=== PATIENT | female | born 1990 | race Hispanic/Latino ===

== ENCOUNTER 2022-01-24 02:55 | Emergency (ER) | payer OTHER ==
[2022-01-24] MEDS ORDERED: NA CHLORIDE 0.9% 1,000 ML ONE ×3 (03:35→05:45)
[2022-01-24 03:47] LABS: Absolute Lymphocytes (CBC) 3.1 K/uL (0.7-4.9); Hematocrit 32.1 % (36.0-45.0); Lymphocytes % 21.9 % (15.3-44.8); MCV 86.5 fL (80-100); MPV 8.5 fL (7.6-11.3); RBC Red Blood Cell Count 3.71 M/uL (3.86-4.86)
[2022-01-24] MEDS ORDERED: ONDANSETRON 4 MG/2 ML VIAL ONE (05:20)
[2022-01-24] MEDS ORDERED: OXYTOCIN 10 UNIT/ML ML ONE (05:44)
[2022-01-24] MEDS ORDERED: METHYLERGONOVINE 0.2MG/ML AMP IM ONE (05:45)
[2022-01-24] MEDS ORDERED: KCL 20 MEQ/100 mL IVPB 100 ML IV ONE (05:46)
[2022-01-24] MEDS ORDERED: NA CHLORIDE 0.9% 100 ML ONE (06:07)
[2022-01-24] MEDS ORDERED: CEFAZOLIN SODIUM 1 GM/VIAL ONE (06:07)
--- NOTE | 2022-01-24 08:58 | RAD REPORT ---
EXAM DESCRIPTION: US - Transvaginal OB - 01/24/2022 8:05 am CLINICAL HISTORY: VAGINAL BLEEDING COMPARISON: Transvaginal OB dated 01/24/2022 FINDINGS: The uterus is mildly prominent in size. Endometrium appears empty. No evidence of retained products of conception. Both ovaries were obscured by bowel gas. IMPRESSION: No evidence of retained products of conception.
[2022-01-24 08:59] LABS: Hematocrit 24.1 % (36.0-45.0)
--- NOTE | 2022-01-24 10:23 | ER ---
Nurse's Notes [facility] Name: Lorena Fragoso Age: 31 yrs Sex: Female : 1990 Arrival Date: 01/24/2022 Time: 02:56 Bed 3 Private MD: Diagnosis: Anemia, unspecified;Incomplete spontaneous with other complications Presentation: 01/24 04:08 Chief complaint: Patient states: I got a "pill" from my OBGYN to abort my twins. I kd3 started to bleed around 1:50 yesterday but when a passed the second baby, i really started to bleed a lot and it didn't stop. I am soaking my pads and II am so dizzy. Coronavirus screen: Vaccine status: Patient reports being unvaccinated. Ebola Screen: No symptoms or risks identified at this time. Initial Sepsis Screen: Does the patient meet any 2 criteria? No. Patient's initial sepsis screen is negative. Does the patient have a suspected source of infection? No. Patient's initial sepsis screen is negative. Risk Assessment: Do you want to hurt yourself or someone else? Patient reports no desire to harm self or others. Onset of symptoms was January 24, 2022. 04:08 Method Of Arrival: Wheelchair kd3 04:08 Acuity: ZAID 3 kd3 Triage Assessment: 04:08 General: Appears uncomfortable, Behavior is calm, cooperative. 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 - Social history:: Smoking status: unknown. Screenin:13 Abuse screen: Denies threats or abuse. Denies injuries from another. Nutritional kd3 screening: No deficits noted. Tuberculosis screening: No symptoms or risk factors identified. Fall Risk None identified. Assessment: 03:38 General: Appears in no apparent distress. Behavior is calm, cooperative. Pain: kd3 Complains of pain in suprapubic area. Neuro: Level of Consciousness is awake, alert, obeys commands, Oriented to person, place, time, situation. : Urine is blood tinged, Reports vaginal bleeding that is bright red. 06:55 Reassessment: Dr. España came to visit the PT at bedside. will monitor for a few hours kd3 and repeat an ultrasound. Pt bleeding decreased. General: Appears in no apparent distress. Behavior is calm, cooperative. 07:00 Reassessment: RECD REPORT FROM CAITLYN LOMBARDI. 31 YO HF P/W VAGINAL BLEEDING AFTER PASSAGE OF bp STILLBIRTH. PT SEEN BY OB DR ESPAÑA. REPEAT U/S AND PRBC TRANSFUSION PENDING. 08:00 Reassessment: REPEAT U/S COMPLETE, INITIAL RESULT UNREMARKABLE. bp 08:24 Reassessment: PER DR ESPAÑA, NO NEED FOR TRANSFUSION, CANCELLED BY . bp 09:01 Reassessment: REPEAT H/H SENT TO LAB. bp 10:47 Reassessment: PT D/C HOME AMBULATORY WITH FAMILY. bp Vital Signs: 03:25 BP 115 / 72; kd3 04:38 BP 107 / 59; Pulse 93; Resp 19; Pulse Ox 100% ; kd3 04:38 Temp 98.2(O); Weight 58.97 kg; Height 5 ft. 1 in. (154.94 cm); kd3 06:08 BP 101 / 70; Pulse 89; Resp 18; Pulse Ox 100% on R/A; kd3 07:00 BP 111 / 68; Pulse 101; Resp 15; Pulse Ox 100% ; bp 09:00 BP 109 / 66; Pulse 90; Resp 16; Pulse Ox 100% ; bp 10:47 BP 109 / 65; Pulse 95; Resp 16; Pulse Ox 100% ; bp 04:38 Body Mass Index 24.56 (58.97 kg, 154.94 cm) kd3 ED Course: 02:56 Patient arrived in ED. ja2 03:18 Sohail Parada MD is Attending Physician. 7 03:24 Caitlyn Armstrong, RN is Primary Nurse. kd3 03:38 Inserted saline lock: 18 gauge in right antecubital area, using aseptic technique. kd3 Blood collected. 04:08 Arm band placed on right wrist. kd3 04:13 Triage completed. kd3 04:13 No provider procedures requiring assistance completed. kd3 04:13 Patient has correct armband on for positive identification. kd3 04:18 US Transvaginal Ob In Process Unspecified. EDMS 07:03 Primary Nurse role handed off by Caitlyn Armstrong, RN bp 07:03 Nahid Goldstein, HARJIT is Primary Nurse. bp 07:12 Attending Physician role handed off by Sohail Parada MD ms3 07:12 Saji Montesinos DO is Attending Physician. ms3 08:07 US Transvaginal Ob: REPEAT In Process Unspecified. EDMS 10:22 Amilcar Epsaña MD is Referral Physician. ms3 10:30 IV discontinued, intact, bleeding controlled, No redness/swelling at site. Pressure bp dressing applied. Administered Medications: 03:28 Drug: NS 0.9% 1000 ml Route: IV; Rate: 1000 ml; Site: right antecubital; kd3 05:46 Drug: Pitocin (oxytocin) 20 units Route: IV; Rate: calculated rate; Site: left kd3 antecubital; 05:47 Drug: METHERgine 0.2 mg Route: IM; Site: right deltoid; kd3 08:44 Follow up: Response: No adverse reaction bp 05:59 Drug: Potassium Chloride 20 mEq Route: IV; Rate: per protocol; Site: right antecubital; kd3 06:08 Drug: Ancef (cefazolin) 1 grams Route: IVPB; Site: left antecubital; kd3 Medication: 04:13 VIS not applicable for this client. kd3 Outcome: 10:22 Discharge ordered by . ms3 10:48 Discharged to home ambulatory. bp 10:48 Condition: stable 10:48 Discharge instructions given to patient, Instructed on discharge instructions, follow up and referral plans. medication usage, Demonstrated understanding of instructions, follow-up care, medications, Prescriptions given X 2. 10:48 Patient left the ED. bp Signatures: Dispatcher [employer] EDWA Nahid Goldstein, RN RN bp Saji Montesinos DO DO ms3 Sohail Parada MD MD 7 Yanet Barton Kyli, RN RN kd3
--- NOTE | 2022-01-24 10:23 | EDPHYS ---
Physician Documentation [facility] Name: Lorena Fragoso Age: 31 yrs Sex: Female : 1990 Arrival Date: 01/24/2022 Time: 02:56 Bed 3 Private MD: ED Physician Saji Montesinos HPI: 01/24 03:40 This 31 yrs old Female presents to ER via Unassigned with complaints of mh7 Vaginal Bleeding. 03:40 The patient presents with vaginal bleeding that is heavy. Onset: The symptoms/episode mh7 began/occurred today. Modifying factors: The symptoms are alleviated by nothing, the symptoms are aggravated by nothing. Associated signs and symptoms: Pertinent negatives: constipation, cramping, diarrhea, dyspareunia, dysuria, fever, hematuria, nausea, urinary frequency, vaginal discharge, vomiting. Severity of symptoms: At their worst the symptoms were moderate, earlier today, in the emergency department the symptoms have improved, moderately. 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 She states that she passed two fetuses this morning and has had continued vaginal bleeding.. 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 - Social history:: Smoking status: unknown. ROS: 03:40 Constitutional: Negative for fever, chills, and weight loss, Eyes: Negative for injury, mh7 pain, redness, and discharge, ENT: Negative for injury, pain, and discharge, Neck: Negative for injury, pain, and swelling, Cardiovascular: Negative for chest pain, palpitations, and edema, Respiratory: Negative for shortness of breath, cough, wheezing, and pleuritic chest pain, Abdomen/GI: Negative for abdominal pain, nausea, vomiting, diarrhea, and constipation, Back: Negative for injury and pain, MS/Extremity: Negative for injury and deformity, Skin: Negative for injury, rash, and discoloration, Neuro: Negative for headache, weakness, numbness, tingling, and seizure, Psych: Negative for depression, anxiety, suicide ideation, homicidal ideation, and hallucinations, Allergy/Immunology: Negative for hives, rash, and allergies, Endocrine: Negative for neck swelling, polydipsia, polyuria, polyphagia, and marked weight changes, Hematologic/Lymphatic: Negative for swollen nodes, abnormal bleeding, and unusual bruising. Exam: 03:40 Constitutional: This is a well developed, well nourished patient who is awake, alert, mh7 and in no acute distress. Head/Face: Normocephalic, atraumatic. Eyes: Pupils equal round and reactive to light, extra-ocular motions intact. Lids and lashes normal. Conjunctiva and sclera are non-icteric and not injected. Cornea within normal limits. Periorbital areas with no swelling, redness, or edema. Neck: Trachea midline, no thyromegaly or masses palpated, and no cervical lymphadenopathy. Supple, full range of motion without nuchal rigidity, or vertebral point tenderness. No Meningismus. Chest/axilla: Normal chest wall appearance and motion. Nontender with no deformity. No lesions are appreciated. Cardiovascular: Regular rate and rhythm with a normal S1 and S2. No gallops, murmurs, or rubs. Normal PMI, no JVD. No pulse deficits. Respiratory: Lungs have equal breath sounds bilaterally, clear to auscultation and percussion. No rales, rhonchi or wheezes noted. No increased work of breathing, no retractions or nasal flaring. Abdomen/GI: Soft, non-tender, with normal bowel sounds. No distension or tympany. No guarding or rebound. No evidence of tenderness throughout. Back: No spinal tenderness. No costovertebral tenderness. Full range of motion. Skin: Warm, dry with normal turgor. Normal color with no rashes, no lesions, and no evidence of cellulitis. MS/ Extremity: Pulses equal, no cyanosis. Neurovascular intact. Full, normal range of motion. Neuro: Awake and alert, GCS 15, oriented to person, place, time, and situation. Cranial nerves II-XII grossly intact. Motor strength 5/5 in all extremities. Sensory grossly intact. Cerebellar exam normal. Normal gait. Psych: Awake, alert, with orientation to person, place and time. Behavior, mood, and affect are within normal limits. 04:25 : CVA tenderness, is absent, Pelvic Exam: External exam: is normal, Speculum exam: mh7 moderate bleeding, blood clots in vaginal vault, os that is open, tissue in cervix is seen, tissue in vagina is seen, the nurse was present for the exam, Bladder: is normal. Vital Signs: 03:25 BP 115 / 72; kd3 04:38 BP 107 / 59; Pulse 93; Resp 19; Pulse Ox 100% ; kd3 04:38 Temp 98.2(O); Weight 58.97 kg; Height 5 ft. 1 in. (154.94 cm); kd3 06:08 BP 101 / 70; Pulse 89; Resp 18; Pulse Ox 100% on R/A; kd3 07:00 BP 111 / 68; Pulse 101; Resp 15; Pulse Ox 100% ; bp 09:00 BP 109 / 66; Pulse 90; Resp 16; Pulse Ox 100% ; bp 10:47 BP 109 / 65; Pulse 95; Resp 16; Pulse Ox 100% ; bp 04:38 Body Mass Index 24.56 (58.97 kg, 154.94 cm) kd3 MDM: 06:29 Differential diagnosis: ectopic , menometrorrhagia, menorrhea, threatened Ab, mh7 inevitable Ab, complete Ab, retained Ab, missed Ab, hemorrhage. Data reviewed: vital signs, nurses notes, lab test result(s), Beta HCG: CBC, electrolytes, radiologic studies, ultrasound. Data interpreted: Pulse oximetry: on room air is 100 %. Interpretation: normal. Physician consultation: Amilcar España MD was contacted at 05:10, and will see patient in ED, in the emergency department to see patient at 05:30. 07:04 Transition of care: After a detail discussion of the patient's case, care is [facility] transferred to [facility]. 07:12 Patient medically screened. ms3 08:25 Physician consultation: Amilcar España MD was called at 08:25, Patient will not need ms3 the 2 units PRBCs ordered. Patient to be walked around and if not syncopal and repeat H/H not less than 7 patient can be discharged. Patient to get Cytotec 100 mcg, 1 po q 4 hours for total of 6 doses. Doxycycline 100 mg BID for 3 days.. 01/24 03:22 Order name: Abo/rh Typing; Complete Time: 06:27 [facility] 01/24 03:22 Order name: Basic Metabolic Panel; Complete Time: 04:59 [facility] 01/24 03:22 Order name: CBC with Diff; Complete Time: 04:59 7 01/24 03:22 Order name: Quantitative Hcg; Complete Time: 04:59 7 01/24 06:16 Order name: Antibody Screen; Complete Time: 06:27 [facility] 01/24 03:22 Order name: US Transvaginal Ob 7 01/24 06:16 Order name: Packed RBC Leukored MS 01/24 07:06 Order name: US Transvaginal Ob: REPEAT; Complete Time: 09:35 bp 01/24 08:24 Order name: Hemoglobin; Complete Time: 09:35 ms3 01/24 08:24 Order name: Hematocrit; Complete Time: 09:35 id3 01/24 03:22 Order name: IV Saline Lock; Complete Time: 03:28 7 01/24 03:22 Order name: Labs collected and sent; Complete Time: 03:28 [facility] 01/24 03:22 Order name: NPO; Complete Time: 03:28 mh7 Administered Medications: 03:28 Drug: NS 0.9% 1000 ml Route: IV; Rate: 1000 ml; Site: right antecubital; kd3 05:46 Drug: Pitocin (oxytocin) 20 units Route: IV; Rate: calculated rate; Site: left kd3 antecubital; 05:47 Drug: METHERgine 0.2 mg Route: IM; Site: right deltoid; kd3 08:44 Follow up: Response: No adverse reaction bp 05:59 Drug: Potassium Chloride 20 mEq Route: IV; Rate: per protocol; Site: right antecubital; kd3 06:08 Drug: Ancef (cefazolin) 1 grams Route: IVPB; Site: left antecubital; kd3 Disposition Summary: 01/24/22 10:22 Discharge Ordered Location: Home ms3 Condition: Stable ms3 Diagnosis - Anemia, unspecified ms3 - Incomplete spontaneous with other complications ms3 Followup: ms3 - With: Amilcar España MD - When: 2 - 3 days - Reason: Recheck today's complaints Discharge Instructions: - Discharge Summary Sheet ms3 - Anemia ms3 - Miscarriage, [id number] ms3 Forms: - Work release form bp - Medication Reconciliation Form ms3 - Thank You Letter ms3 - Antibiotic Education ms3 - Prescription Opioid Use ms3 - Family Work Release bp Prescriptions: - Doxycycline Hyclate 100 mg Oral Tablet - take 1 tablet by ORAL route every 12 hours; 20 tablet; Refills: 0, Product ms3 Selection Permitted - Cytotec 100 mcg Oral tablet - take 1 tablet by ORAL route every 4 hours; 6 tablet; Refills: 0, Product ms3 Selection Permitted Signatures: Dispatcher [employer] Saji Rg DO DO ms3 Sohail Parada MD MD mh7 Caitlyn Armstrong RN RN kd3 Nahid Goldstein RN bp
--- NOTE | 2022-01-24 10:59 | PREOPHP ---
Date of Admission: 01/24/2022 History Of Present Illness: This is a 31-year-old, 4, para 3, with known intrauterine twin gestation, seen by Dr. Gamboa after referral from my office, noted to have an intrauterine demise of both twins, yesterday was given Cytotec intravaginally in Dr. Gamboa's office and told to report back to Dr. Gamboa should any heavy bleeding occur. This morning at approximately 3 a.m., she began bleeding heavily. Because she lives in [place], came to this hospital instead of [facility] in [place]. At time of being seen in the emergency room, was bleeding profusely. Ultrasound demonstrated retained products. Inspection exam done by ER physician at that time showed lots of clots and tissue that could be removed. She has 2 IVs. She has been started on IV Pitocin at 200 cc an hour 20 units and 1000 cc. Had been given Methergine 0.2 mg IM. Speculum exam was done and showed products of conception in the office. These were teased out with ring clamps. The final specimen that was removed looked like basically an embryonic sac, but the patient showed me pictures that showed both twins had been aborted at home. This could be the last part of an abnormal placenta. Everything of course will be sent to pathology. After removal of the products, bleeding has subsided substantially. The patient is Rh positive, therefore will not need RhoGAM. She will be observed here in the emergency room for several more hours until she is stable. We will repeat another ultrasound to make sure the uterus is empty. Once she is dismissed, we will send her home with Cytotec 100 mcg every 4 hours for 6 doses, doxycycline 100 mg twice a day for 3 days for prophylaxis. She has been given 1 g of Ancef here in the emergency room. At this time, her bleeding is minimal. Her vital signs are all better. She says she feels better at this point, but we will get another ultrasound to make sure that there are not some retained products. Family History: Noncontributory. Past Medical History: Three uneventful deliveries. Allergies: NO KNOWN ALLERGIES. Past Surgical History: No previous surgeries. Physical Examination: HEENT: Clear. Pupils equal, round, reactive to light and accommodation. Conjunctivae well perfused. Chest and Lungs: Normal. Heart: Normal. Breasts: Not examined. Abdomen: Without problems. Extremities: Clear. Pelvic: Shows the cervical os widely dilated with lots of clots in the vagina, but once these were cleared, we could see membranes and these were teased out and we will send all tissue to pathology. If they are still products remaining too high for the ring clamp to reach, we will probably have to do a vacuum extraction, but at this point, everything looks completed . Followup according to the patient's response. Doing well at this point. Diagnoses: Intrauterine demise less than 20 weeks, incomplete , medically induced and basically removal of products of conception in the emergency room. No curettage was done, but extraction with ring clamp. JAYDEN/SMILEY Voice ID: [id number] MTDD
[2022-01-24 11:22] VITALS: TEMP 98.2; O2SAT 100
[2022-01-24 11:39] VITALS: BP 109/65
--- NOTE | 2022-01-24 13:27 | RAD REPORT ---
EXAM DESCRIPTION: Ultrasound Pelvis COMPARISON: None. CLINICAL HISTORY: [facility] MAIN VAGINAL BLEEDING TECHNIQUE: Transabdominal and transvaginal sonographic images of the pelvis were obtained. Color Doppler was also utilized. FINDINGS: Uterus: The uterus measures 12.6 x 9.3 x 7.5 cm and is in a normal position. The endometri um is thickened demonstrating echogenic products with cystic areas measuring up to 5.2 cm. There are areas of vascularity within. Right Adnexa: The right ovary measures 3.2 x 1.3 x 2.6 cm and is normal. Normal vascularity. Left Adnexa: The left ovary measures 3.0 x 1.6 x 2.2 cm and is normal. Normal vascularity. Peritoneal cavity: No free fluid is seen in the cul-de-sac. IMPRESSION: Complex endometrial products which are entering the lower uterine segment and cervix, co mpatible with miscarriage in progress/retained products of conception. Electronically signed by: Ata Stevens MD 01/24/2022 6:02 AM CDT Due to temporary technical issues with the PACS/Fluency reporting system, reports are being signed by the in house radiologists without review as a courtesy to insure prompt reporting. The interpreting radiologist is fully responsible for the content of the report.
== END 2022-01-24 10:48 | disposition home or self-care (01) ==
LOC: ER 02:55
PROC: 30233N1 Transfusion of Nonautologous Red Blood Cells into Peripheral Vein, Percutaneous Approach (ICD-10-PCS; principal; 2022-01-24)
DX: O03.39 Incomplete spontaneous abortion with other complications (principal); D64.9 Anemia, unspecified
CPT/HCPCS: 85025; 80048; 36415; 86900; 86850; 86901; 84702; 85018; 85014; 76817 ×2; 36430; J2210; J3480; J7030 ×3; J2405; J0690

== ENCOUNTER 2022-03-07 21:22 | Emergency (ER) | payer OTHER ==
--- OUTSIDE RECORDS SUMMARY | 2022-03-07 21:26 | XMS REPORT | Continuity of Care Document ---
:1990 Author Organization [facility] t Address [address] [place] [address] Care Team Providers Name Role Phone Pcp, Patient Does Not Have A Primary Care Physician [id number] CAITLIN MURPHY Attending Clinician Unavailable Jeffrey GOLDSTEIN, Caitlin Arciniega Attending Clinician Angeles Mejia Attending Clinician ANGELES WELSH Attending Clinician Unavailable 2, [facility] Attending Clinician Unavailable Brianda Bentley MD Attending Clinician [phone] Doctor Unassigned, [place] Attending Clinician Unavailable Payers Payer Name Policy Type Policy Number Effective Date Expiration Date Becky MADRIGALS [id number] 2021 HEALTH 00:00:00 Problems Condition Condition Condition Status Onset Resolution Last Treating Co mments Source Name Details Category Date Date Treatment Clinician Date Nausea and Nausea and Disease Active U nivers vomiting vomiting 7-18 ity of during during 00:00: [place] 00 Medi richard prior to prior to Branch 22 weeks 22 weeks gestation gestation Dizziness Dizziness Disease Active Uni vers and and 7-18 [place] [facility] High risk High risk Disease Active Uni vers , , 7-18 [place] ante[place] [facility] 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, c twins, 7-18 [place] of [place] [facility] Allergies, Adverse Reactions, Alerts Allergy Allergy Status Severity Reaction(s) Onset Inactive Treating Comm ents Source Name Type Date Date Clinician NO KNOWN Drug Active Univers ALLERGIE Class ity of S [facility] Social History Social Habit Start Date Stop Date Quantity Comments Source ASSERTION 2021-11-05 University 00:00:00 [facility] History of Passive smoker University of tobacco use [facility] Exposure to 2022-01-13 2022-01-23 Not sure [facility] SARS-CoV-2 00:00:00 12:29:00 [facility] (event) [place] Tobacco use and 2021-12-25 2021-12-25 Smokeless tobacco Un iversity of exposure 00:00:00 00:00:00 non-user [facility] Alcohol intake 2021-12-25 2021-12-25 Lifetime University of 00:00:00 00:00:00 non-drinker [facility] (finding) [place] Sex Assigned At [birth year] Universit y of 00:00:00 00:00:00 [facility] Smoking Status Start Date Stop Date Source Never smoked tobacco [facility] Medications Ordered Filled Start Stop Current Ordering Indication Dosage Frequency Signature Comments Components Source Medication Medication Date Date Medication? Clinician (SIG) Name Name ibuprofen Yes [id number] 600mg Take 1 U nivers 600 mg 8-16 tablet by ity of tablet 00:00: mouth [place] 00 every 6 Medical (six) Branch hours as needed for Pain (scale 1-3) or Pain (scale 4-6). ibuprofen Yes [id number] 600mg Take 1 U nivers 600 mg 8-16 tablet by ity of tablet 00:00: mouth [place] 00 every 6 Medical (six) Branch hours as needed for Pain (scale 1-3) or Pain (scale 4-6). HYDROcodone 2021- Yes [id number] 1{tbl} Take 1 U nivers -acetaminop 8-16 08-24 tablet by it y of hen 5-325 00:00: 04:59 mouth [place] mg tablet 00 :00 every 6 Medical (six) Branch hours as needed for Pain (scale 7-10) for up to 7 days. Indication s: acute pain HYDROcodone 2021- Yes [id number] 1{tbl} Take 1 U nivers -acetaminop 8-16 08-24 tablet by it y of hen 5-325 00:00: 04:59 mouth [place] mg tablet 00 :00 every 6 Medical (six) Branch hours as needed for Pain (scale 7-10) for up to 7 days. Indication s: acute pain PNV 2021-0 Yes Take by Univers no.95/rubia 7-18 mouth. ity of 08:17: [place] fum/folic 34 Medical ac Branch ( ORAL) PNV 0 Yes Take by Univers no.95/rubia 7-18 mouth. ity of 08:17: [place] fum/folic 34 Medical ac Branch ( ORAL) PNV 0 Yes Take by Univers no.95/rubia 7-18 mouth. ity of 08:17: [place] fum/folic 34 Medical ac Branch ( ORAL) PNV 0 Yes Take by Univers no.95/rubia 7-18 mouth. ity of 08:17: [place] fum/folic 34 Medical ac Branch ( ORAL) PNV 0 Yes Take by Univers no.95/rubia 7-18 mouth. ity of 08:17: [place] fum/folic 34 Medical ac Branch ( ORAL) pyridoxine, 0 Yes [id number] 25mg Take 1 Univers VITAMIN 7-18 tablet by ity of B-6, 00:00: mouth [place] (VITAMIN 00 every 6 Medical B-6) 25 mg (six) Branch tablet hours as needed for Nausea and Vomiting (N/V). doxylamine 0 Yes [id number] 25mg Take 1 U nivers (UNISOM, 7-18 tablet by ity of DOXYLAMINE, [place] 25 mg 00 bedtime as Medica l tablet needed for Branch Nausea and Vomiting (N/V). metoclopram 0 Yes [id number] 10mg Take 1 Univers crissy HCl 10 7-18 tablet by ity of mg tablet 00:00: mouth [place] 00 every 6 Medical (six) Branch hours as needed for Nausea and Vomiting (N/V). pyridoxine, 2022-0 Yes [id number] 25mg Take 1 Univers VITAMIN 7-18 tablet by ity of B-6, 00:00: mouth [place] (VITAMIN 00 every 6 Medical B-6) 25 mg (six) Branch tablet hours as needed for Nausea and Vomiting (N/V). doxylamine 2021-0 Yes [id number] 25mg Take 1 U nivers (UNISOM, 7-18 tablet by ity of DOXYLAMINE, [place]: [place] 25 mg 00 bedtime as Medica l tablet needed for Branch Nausea and Vomiting (N/V). metoclopram 2021-0 Yes [id number] 10mg Take 1 Univers crissy HCl 10 7-18 tablet by ity of mg tablet 00:00: mouth [place] 00 every 6 Medical (six) Branch hours as needed for Nausea and Vomiting (N/V). pyridoxine, 2021-0 Yes [id number] 25mg Take 1 Univers VITAMIN 7-18 tablet by ity of B-6, 00:00: mouth [place] (VITAMIN 00 every 6 Medical B-6) 25 mg (six) Branch tablet hours as needed for Nausea and Vomiting (N/V). doxylamine 2021-0 Yes [id number] 25mg Take 1 U nivers (UNISOM, 7-18 tablet by ity of DOXYLAMINE, [place]: [place] 25 mg 00 bedtime as Medica l tablet needed for Branch Nausea and Vomiting (N/V). metoclopram 2021-0 Yes [id number] 10mg Take 1 Univers crissy HCl 10 7-18 tablet by ity of mg tablet 00:00: mouth [place] 00 every 6 Medical (six) Branch hours as needed for Nausea and Vomiting (N/V). pyridoxine, 2021-0 Yes [id number] 25mg Take 1 Univers VITAMIN 7-18 tablet by ity of B-6, 00:00: mouth [place] (VITAMIN 00 every 6 Medical B-6) 25 mg (six) Branch tablet hours as needed for Nausea and Vomiting (N/V). doxylamine 2021-0 Yes [id number] 25mg Take 1 U nivers (UNISOM, 7-18 tablet by ity of DOXYLAMINE, [place]: [place] 25 mg 00 bedtime as Medica l tablet needed for Branch Nausea and Vomiting (N/V). metoclopram 2022-0 Yes [id number] 10mg Take 1 Univers crissy HCl 10 7-18 tablet by ity of mg tablet 00:00: mouth [place] 00 every 6 Medical (six) Branch hours as needed for Nausea and Vomiting (N/V). pyridoxine, 2-0 Yes [id number] 25mg Take 1 Univers VITAMIN 7-18 tablet by ity of B-6, 00:00: mouth [place] (VITAMIN 00 every 6 Medical B-6) 25 mg (six) Branch tablet hours as needed for Nausea and Vomiting (N/V). doxylamine 2-0 Yes [id number] 25mg Take 1 U nivers (UNISOM, 7-18 tablet by ity of DOXYLAMINE, [place]: [place] 25 mg 00 bedtime as Medica l tablet needed for Branch Nausea and Vomiting (N/V). metoclopram 2-0 Yes [id number] 10mg Take 1 Univers crissy HCl 10 7-18 tablet by ity of mg tablet 00:00: mouth [place] 00 every 6 Medical (six) Branch hours as needed for Nausea and Vomiting (N/V). metoclopram 2-0 Yes [id number] 10mg Take 1 Univers crissy HCl 10 7-07 tablet by ity of mg tablet 00:00: mouth [place] 00 every 6 Medical (six) Branch hours. metoclopram 2022-0 Yes [id number] 10mg Take 1 Univers crissy HCl 10 7-07 tablet by ity of mg tablet 00:00: mouth [place] 00 every 6 Medical (six) Branch hours. metoclopram 2022-0 Yes [id number] 10mg Take 1 Univers crissy HCl 10 7-07 tablet by ity of mg tablet 00:00: mouth [place] 00 every 6 Medical (six) Branch hours. metoclopram 2022-0 Yes [id number] 10mg Take 1 Univers crissy HCl 10 7-07 tablet by ity of mg tablet 00:00: mouth [place] 00 every 6 Medical (six) Branch hours. metoclopram 2022-0 Yes [id number] 10mg Take 1 Univers crissy HCl 10 7-07 tablet by ity of mg tablet 00:00: mouth [place] 00 every 6 Medical (six) Branch hours. loratadine 2019-1 Yes [id number] 10mg Take 1 Un nick 10 mg 1-12 tablet by ity of tablet 00:00: mouth [place] 00 daily. Medical Branch loratadine 2018-06 Yes [id number] 10mg Take 1 Un nick 10 mg 1-12 tablet by ity of tablet 00:00: mouth [place] 00 daily. Medical Branch loratadine 2018-06 Yes [id number] 10mg Take 1 Un nick 10 mg 1-12 tablet by ity of tablet 00:00: mouth [place] 00 daily. Medical Branch loratadine 2018-06 Yes [id number] 10mg Take 1 Un nick 10 mg 1-12 tablet by ity of tablet 00:00: mouth [place] 00 daily. Medical Branch loratadine 2018-06 Yes [id number] 10mg Take 1 Un nick 10 mg 1-12 tablet by ity of tablet 00:00: mouth [place] 00 daily. [facility] Branch Vital Signs Vital Name Observation Time Observation Value Comments Source Systolic blood 2022-01-23 18:12:00 107 mm[Hg] Univer sity of [facility] Diastolic blood 2022-01-23 18:12:00 70 mm[Hg] [facility] Heart rate 2022-01-23 18:12:00 80 /min [facility] Body temperature 2022-01-23 18:12:00 37.06 Ora [facility] Body height 2022-01-23 18:12:00 154.9 cm [facility] Body weight 2022-01-23 18:12:00 59.149 kg [facility] BMI 2022-01-23 18:12:00 24.64 kg/m2 [facility] Systolic blood 2022-01-19 14:47:00 120 mm[Hg] Univer sity of [facility] Diastolic blood 2022-01-19 14:47:00 67 mm[Hg] Unive rsity [facility] [place] [facility] Heart rate 2022-01-19 14:47:00 96 /min [facility] Body temperature 2022-01-19 14:47:00 37.11 Ora [facility] Respiratory rate 2022-01-19 14:47:00 16 /min [facility] Body height 2022-01-19 14:47:00 154.9 cm Universi ty of [facility] Body weight 2022-01-19 14:47:00 58.968 kg [facility] BMI 2022-01-19 14:47:00 24.56 kg/m2 [facility] Oxygen saturation in 2022-01-19 14:47:00 98 /min University of Arterial blood by [facility] Pulse oximetry Branch Procedures Procedure Date / Time Performed Performing Clinician [facility] CONSENT/REFUSAL FOR 2022-01-19 14:42:35 Doctor Unassigned, No Un iversity of [place] DIAGNOSIS AND Name Medical Branch TREATMENT SCANNED LAB RESULTS 2022-01-01 05:01:00 Doctor Unassigned, No [facility] [place] Name Medical Branch Encounters Start End Encounter Admission Attending Care Care Encounter Source Date/Time Date/Time Type Type Clinicians Facility Department ID 2022-01-29 2022-01-29 Outpatient R CAITLIN MURPHY [facility] [id number] Univers 10:45:00 10:45:00 [id number] ity of [facility] 2022-01-29 2022-01-29 Outpatient R CAITLIN MURPHY [facility] [id number] Univers 10:45:00 10:45:00 ity of [facility] 2022-01-24 2022-01-24 Outpatient R CAITLIN MURPHY [facility] [id number] Univers 10:30:00 10:30:00 ity of [facility] 2022-01-24 2022-01-24 Telephone Caitlin Murphy GAALESSANDRO [id number] Univers 00:00:00 00:00:00 [place] [id number] i ty of [place] [id number] [id number] Me dical NAL [address] [place] [address] 2022-01-23 2022-01-23 Routine Caitlin Murphy GAALESSANDRO [id number] Univers 13:00:00 13:15:00 Cam [place] [id number] ity of Visit [place] [id number] [place] [id number] Nv dical NAL [address] [place] [address] 2022-01-23 2022-01-23 Outpatient R JEFFREY CAITLIN [facility] [id number] Univers 13:00:00 13:00:00 [id number] [facility] 2022-01-23 2022-01-23 Outpatient Paulino MURPHY CAITLIN [facility] [id number] Univers 13:00:00 13:00:00 [facility] 2022-01-19 2022-01-19 Emergency [facility] [id number] Univers 09:51:00 10:53:00 Angeles REMY [id number] i ty [facility] [id number] [place] [id number] [facility] 084 [place] 2022-01-19 2022-01-19 [facility] [id number] Univers 09:51:00 10:53:00 [facility] [place] [facility] 2022-01-18 2022-01-18 Environmental Professional 2[facility] [id number] Univers 13:45:00 14:50:57 Visit Brianda Bentley V/[employer] 350.1. 13.[address] [facility] [id number] Ahsan as MATERNAL [phone] Med ical & CHILD [address] [place] [address] 2022-01-01 2022-01-01 Orders Doctor LESLEE [id number] Univers 00:00:00 00:00:00 Only Unassigned, PRITESH [id number] ity of [place] [facility] [phone] [facility] 009 [place] Results This patient has no known results.
[2022-03-07 22:11] LABS: Urine Blood 3+ (Negative); Urine Glucose Negative (Negative); Urine Protein 2+ (Negative); Urine Specific Gravity >=1.030 (1.005-1.030)
[2022-03-07 22:29] LABS: Absolute Lymphocytes (CBC) 2.2 K/uL (0.7-4.9); Hematocrit 30.5 % (36.0-45.0); Lymphocytes % 25.5 % (15.3-44.8); MPV 8.3 fL (7.6-11.3); RBC Red Blood Cell Count 3.68 M/uL (3.86-4.86)
[2022-03-07 22:44] LABS: Albumin 3.6 g/dL (3.4-5.0); Bilirubin Total 0.2 mg/dL (0.2-1.0); Potassium 3.6 mmol/L (3.5-5.1); Protein, Total 7.4 g/dL (6.4-8.2)
--- NOTE | 2022-03-07 22:53 | RAD REPORT ---
EXAM DESCRIPTION: US - Pelvis Complete - 03/07/2022 10:31 pm CLINICAL HISTORY: Vaginal bleeding COMPARISON: January 24, 2022 FINDINGS: The uterus measures 9 x 5 x 6 centimeters. Endometrial stripe measures 2.3 centimeters. It is somewhat heterogeneous. 5.3 centimeter left ovarian cyst. Blood flow is present the left ovary. Right ovary normal size and echotexture. No significant free fluid IMPRESSION: Endometrial stripe is thickened and heterogeneous. As the patient was in January 2022 this co uld indicate retained products of conception and should correlated clinically. Another consideration is that this is related to the patient's menses 5.3 centimeter left ovarian cyst
--- NOTE | 2022-03-07 23:23 | EDPHYS ---
Physician Documentation [facility] Name: Lorena Fragoso Age: 31 yrs Sex: Female : 1990 Arrival Date: 03/07/2022 Time: 21:27 Bed 5 Private MD: ED Physician Phong Scott HPI: 03/07 21:45 This 31 yrs old Female presents to ER via Wheelchair with complaints of jmm Vaginal Bleeding. 21:45 The patient presents with vaginal bleeding that is. Onset: The symptoms/episode jmm began/occurred gradually, 1 month(s) ago. Modifying factors: The symptoms are alleviated by nothing, the symptoms are aggravated by nothing. This is a 31 year old female with no chronic medical conditions. 1 month s/p dnc due to spontaneous with complaints of ongoing bleeding since the procedure. Patient states feeling weak today and passing clots. Patient states being prescribed lo ovral but will occasionally miss doses. DNC performed by Dr. Schumacher. . Historical: - Allergies: 21:38 No Known Allergies; hb - Home Meds: 21:38 None [Active]; hb - PMHx: 21:38 None; hb - PSHx: 21:38 None; hb - Immunization history:: Adult Immunizations up to date. - Social history:: Smoking status: Patient denies any tobacco usage or history of. ROS: 21:45 Constitutional: Negative for fever, chills, and weight loss, Cardiovascular: Negative jmm for chest pain, palpitations, and edema, Respiratory: Negative for shortness of breath, cough, wheezing, and pleuritic chest pain. 21:45 Neuro: Positive for weakness. 21:45 All other systems are negative. Exam: 21:45 Constitutional: This is a well developed, well nourished patient who is awake, alert, jmm and in no acute distress. Head/Face: atraumatic. Eyes: EOMI, no conjunctival erythema appreciated ENT: Moist Mucus Membranes Neck: Trachea midline, Supple Chest/axilla: Normal chest wall appearance and motion. Cardiovascular: Regular rate and rhythm. No edema appreciated Respiratory: Normal respirations, no respiratory distress appreciated Abdomen/GI: Non distended Back: Normal ROM Skin: General appearance color normal MS/ Extremity: Moves all extremities, no obvious deformities appreciated, no edema noted to the lower extremities Neuro: Awake and alert Psych: Behavior is normal, Mood is normal, Patient is cooperative and pleasant Vital Signs: 21:36 BP 132 / 82; Pulse 105; Resp 16; Temp 98.4; Pulse Ox 100% on R/A; Weight 58.97 kg; hb Height 5 ft. 1 in. (154.94 cm); Pain 3/10; 22:15 BP 121 / 76; Pulse 98; Resp 16; Pulse Ox 100% on R/A; jb4 22:45 BP 113 / 74; Pulse 96; Resp 16; Pulse Ox 100% on R/A; jb4 23:15 BP 100 / 68; Pulse 93; Resp 18; Pulse Ox 100% on R/A; jb4 21:36 Body Mass Index 24.56 (58.97 kg, 154.94 cm) hb MDM: 21:45 Patient medically screened. [facility] 23:18 Data reviewed: vital signs, nurses notes. Counseling: I had a detailed discussion with pooja the patient and/or guardian regarding: the historical points, exam findings, and any diagnostic results supporting the discharge/admit diagnosis, lab results, radiology results, the need for outpatient follow up. Refusal of service: The patient/guardian displays adequate decision making capability and despite a detailed discussion of alternatives, benefits, risks, and consequences refuses: transfer. ED course: I discussed with the patient the need for further evaluation by OBGYN. DNC was performed after . Most likely abnormal uterine bleeding vs poc. I left voicemail with dr. schumacher. At this time no response. I did offer to transfer for obgyn evaluation. Patient declined. Will follow up with obgyn tomrrow morning. Otherwise given strict return precautions. Patient/ understood and agrees with the plan of care. . 03/07 21:46 Order name: CBC with Diff; Complete Time: 22:40 [facility] 03/07 21:46 Order name: CMP; Complete Time: 22:48 [facility] 03/07 21:46 Order name: Type And Screen [facility] 03/07 21:46 Order name: US Pelvis Complete; Complete Time: 22:56 [facility] 03/07 22:12 Order name: Urine Dipstick-Ancillary; Complete Time: 22:24 [facility] 03/07 21:46 Order name: Saline Lock; Complete Time: 22:14 [facility] 03/07 21:46 Order name: Urine Dipstick-Ancillary (obtain specimen); Complete Time: 22:12 [facility] 03/07 21:46 Order name: Urine Test (obtain specimen); Complete Time: 22:12 [facility] Administered Medications: No medications were administered Disposition Summary: 03/07/22 23:22 Discharge Ordered Location: Home [facility] Condition: Stable [facility] Diagnosis - Other specified abnormal uterine and vaginal bleeding [facility] Followup: [facility] - With: Amilcar Schumacher MD - When: Tomorrow - Reason: Recheck today's complaints, Continuance of care, Re-evaluation by your physician Discharge Instructions: - Discharge Summary Sheet [facility] - Abnormal Uterine Bleeding [facility] Forms: - Medication Reconciliation Form [facility] - Thank You Letter [facility] - Antibiotic Education [facility] - Prescription Opioid Use [facility] Signatures: Dispatcher [employer] Yvan Millan PA PA jmm Baxter, Heather, RN RN
--- NOTE | 2022-03-07 23:23 | ER ---
Nurse's Notes [facility] Name: Lorena Fragoso Age: 31 yrs Sex: Female : 1990 Arrival Date: 03/07/2022 Time: 21:27 Bed 5 Private MD: Diagnosis: Other specified abnormal uterine and vaginal bleeding Presentation: 03/07 21:36 Chief complaint: Patient states: "I had a miscarriage last month and have been bleeding hb all month, today it suddenly got worse." Pt reports heavy vaginal bleeding today, dizziness and generalized weakness x 20 minutes. Coronavirus screen: At this time, the client does not indicate any symptoms associated with coronavirus-19. Ebola Screen: No symptoms or risks identified at this time. Initial Sepsis Screen: Does the patient meet any 2 criteria? No. Patient's initial sepsis screen is negative. Does the patient have a suspected source of infection? No. Patient's initial sepsis screen is negative. Risk Assessment: Do you want to hurt yourself or someone else? Patient reports no desire to harm self or others. Onset of symptoms was March 07, 2022. 21:36 Method Of Arrival: Wheelchair hb 21:36 Acuity: ZAID 3 hb Historical: - Allergies: 21:38 No Known Allergies; hb - Home Meds: 21:38 None [Active]; hb - PMHx: 21:38 None; hb - PSHx: 21:38 None; hb - Immunization history:: Adult Immunizations up to date. - Social history:: Smoking status: Patient denies any tobacco usage or history of. Screenin:45 Abuse screen: Denies threats or abuse. Nutritional screening: No deficits noted. jb4 Tuberculosis screening: No symptoms or risk factors identified. Fall Risk None identified. Assessment: 21:45 General: Appears in no apparent distress. comfortable, Behavior is calm, cooperative, jb4 appropriate for age. Pain: Complains of pain in right lower quadrant and left lower quadrant Pain does not radiate. Pain currently is 3 out of 10 on a pain scale. Quality of pain is described as crampy. Neuro: Level of Consciousness is awake, alert, obeys commands, Oriented to person, place, time, situation. Cardiovascular: Patient's skin is warm and dry. Respiratory: Airway is patent Respiratory effort is even, unlabored, Respiratory pattern is regular, symmetrical. GI: No signs and/or symptoms were reported involving the gastrointestinal system. : Urine is blood tinged, Reports vaginal bleeding that is heavy flow. EENT: No signs and/or symptoms were reported regarding the EENT system. Derm: Skin is intact, Skin is pink, warm \\T\\ dry. 22:45 Reassessment: Patient appears in no apparent distress at this time. Patient and/or jb4 family updated on plan of care and expected duration. Pain level reassessed. Patient is alert, oriented x 3, equal unlabored respirations, skin warm/dry/pink. 23:31 Reassessment: Patient appears in no apparent distress at this time. Patient and/or jb4 family updated on plan of care and expected duration. Pain level reassessed. Patient is alert, oriented x 3, equal unlabored respirations, skin warm/dry/pink. Vital Signs: 21:36 BP 132 / 82; Pulse 105; Resp 16; Temp 98.4; Pulse Ox 100% on R/A; Weight 58.97 kg; hb Height 5 ft. 1 in. (154.94 cm); Pain 3/10; 22:15 BP 121 / 76; Pulse 98; Resp 16; Pulse Ox 100% on R/A; jb4 22:45 BP 113 / 74; Pulse 96; Resp 16; Pulse Ox 100% on R/A; jb4 23:15 BP 100 / 68; Pulse 93; Resp 18; Pulse Ox 100% on R/A; jb4 21:36 Body Mass Index 24.56 (58.97 kg, 154.94 cm) hb ED Course: 21:27 Patient arrived in ED. dt4 21:35 Yvan Mckeon PA is PHCP. [facility] 21:35 Phong Scott MD is Attending Physician. [facility] 21:38 Triage completed. hb 21:38 Arm band placed on. hb 21:45 Patient has correct armband on for positive identification. Placed in gown. Bed in low jb4 position. Call light in reach. Side rails up X 1. 21:45 Client placed on continuous cardiac and pulse oximetry monitoring. NIBP monitoring jb4 applied. 21:59 Lj Link, RN is Primary Nurse. jb4 22:00 Initial lab(s) drawn, by me, sent to lab. Inserted saline lock: 20 gauge in right jb4 forearm, using aseptic technique. Blood collected. 22:14 Type And Screen Sent. jb4 22:15 CMP Sent. jb4 22:15 CBC with Diff Sent. jb4 22:33 US Pelvis Complete In Process Unspecified. EDMS 23:21 Amilcar España MD is Referral Physician. jmm 23:31 No provider procedures requiring assistance completed. IV discontinued, intact, jb4 bleeding controlled, No redness/swelling at site. Pressure dressing applied. Administered Medications: No medications were administered Medication: 23:15 VIS not applicable for this client. jb4 Outcome: 23:22 Discharge ordered by . jmm 23:34 Discharged to home ambulatory, with family. jb4 23:34 Condition: stable 23:34 Discharge instructions given to patient, Instructed on discharge instructions, follow up and referral plans. Demonstrated understanding of instructions, follow-up care. 23:34 Patient left the ED. jb4 Signatures: Dispatcher [employer] EDMS Yvan Mckeon PA PA jmm Baxter, Heather, HARJIT RN Lj Macario RN RN jb4 Raina Ledezma dt4
[2022-03-09 13:46] VITALS: TEMP 98
[2022-03-09 13:47] VITALS: BP 148/90; O2SAT 99
== END 2022-03-07 23:34 | disposition home or self-care (01) ==
LOC: ER 21:22
DX: N93.8 Other specified abnormal uterine and vaginal bleeding (principal)
CPT/HCPCS: 36415; 76856; 80053; 81003; 85025; 86850; 86900; 86901; 99284

== ENCOUNTER 2024-07-11 23:19 | Emergency (ER) | payer OTHER, SELFPAY ==
[2024-07-11] MEDS ORDERED: NA CHLORIDE 0.9% 1,000 ML ONE (23:49)
[2024-07-12 00:18] LABS: Specific Gravity 1.008 (1.005-1.030)
[2024-07-12 00:19] LABS: Specific Gravity 1.008 (1.005-1.030); Urine Bilirubin NEGATIVE (Negative); Urine Blood Negative (Negative); Urine Clarity Clear (Clear); Urine Color Colorless (Yellow); Urine Glucose NEGATIVE (Negative); Urine Ketones NEGATIVE (Negative); Urine Microscopic Reflex YN NO UMIC; Urine Nitrite NEGATIVE (Negative); Urine Protein NEGATIVE (Negative); Urine Urobilinogen Normal (Normal)
[2024-07-12] MEDS ORDERED: KETOROLAC 30 MG/ML INJ ONE (00:34)
[2024-07-12 00:39] LABS: Absolute Eosinophils 0.4 K/uL (0-0.5); Absolute Lymphocytes (CBC) 1.7 K/uL (0.7-4.9); Absolute Monocytes 0.6 K/uL (0.1-1.3); Absolute Neutrophil 10.6 K/uL (1.8-8.0); Basophils % 0.1 % (0-1.3); Eosinophils % 3.3 % (0-4.4); Hematocrit 31.2 % (36.0-45.0); Hemoglobin 9.9 g/dL (12.0-15.0); Lymphocytes % 12.8 % (15.3-44.8); MCH 22.3 pg (27.0-35.0); MCHC 31.7 g/dL (32.0-36.0); MCV 70.5 fL (80-100); Monocytes % 4.6 % (3.3-12.3); Neutrophils % 79.2 % (41.7-73.7); Platelets 338 thou/uL (152-406); RBC Red Blood Cell Count 4.42 M/uL (3.86-4.86); Red Cell Distribution Width 16.2 % (12.1-15.2)
[2024-07-12 00:54] LABS: Albumin 3.5 g/dL (3.4-5.0); Albumin/Globulin Ratio 0.9 (1.1-1.8); Anion Gap 7.7 mEq/L (5.0-15.0); Bilirubin Total 0.3 mg/dL (0.2-1.0); Globulin 4.1 g/dL (2.3-3.5); Potassium 3.7 mEq/L (3.5-5.1); Protein, Total 7.6 g/dL (6.4-8.2)
--- NOTE | 2024-07-12 04:50 | RAD REPORT ---
CLINICAL HISTORY: Abdominal pain. COMPARISON: None. TECHNIQUE: CT ABDOMEN PELVIS WITH IV CONTRAST on 07/12/2024 12:49 AM CARE GIVER This exam was performed according to our departmental dose-optimization program, which includes autom ated exposure control, adjustment of the mA and/or kV according to patient size and/or use of iterative reconstruction technique. FINDINGS: Lower lungs are clear. Abdomen: The liver is normal in appearance. There is no biliary dilatation. Gallbladder contains mult iple gallstones. The pancreas and spleen are normal in appearance. Adrenal glands are normal. There is a punctate upper pole left renal calculus. There is no hydronephrosis. Abdominal aorta is normal in course and caliber without aneurysm. There is no free air. There is no r etroperitoneal adenopathy. Pelvis: There is no bowel obstruction. Urinary bladder is unremarkable. There is no free fluid. Uteru s is normal in size containing an IUD. Appendix is normal. Skeleton: There are no acute osseous findings. No suspicious bony lesions. IMPRESSION: Minimal left nephrolithiasis without hydronephrosis. Cholelithiasis. Electronically signed by: Miguel Angel Forrester MD 07/12/2024 04:24 AM CARE GIVER RP Due to temporary technical issues with the PACS/[employer] reporting system, reports are being jamir d by the in-house radiologist without review as a courtesy to ensure prompt reporting the interpreting radiologist is fully responsible for the content of the report. Transcribed Date/Time: 07/12/2024 4:50 AM
--- NOTE | 2024-07-12 05:06 | EDPHYS ---
Physician Documentation [facility] Name: Lorena Fragoso Age: 34 yrs Sex: Female : 1990 Arrival Date: 07/11/2024 Time: 23:19 Bed 12 Private MD: ED Physician Ray Amado HPI: 07/12 00:10 This 34 yrs old Female presents to ER via Ambulatory with complaints of dr5 Urinary Incontinence, Low Back Pain. 00:10 Onset: The symptoms/episode began/occurred today. Patient is a 34-year-old female with dr5 no possible history coming in with dysuria and left lower back pain rating into the front. Patient reports that she has had this before with urinary tract infection. Patient denies fever, nausea, vomiting, diarrhea.. 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 - Infectious Disease History:: Denies. - Social history:: Smoking status: unknown. ROS: 07/12 00:10 Constitutional: as per hpi dr5 Exam: 00:10 Constitutional: This is a well developed, well nourished patient who is awake, alert, dr5 and in no acute distress. Head/Face: Normocephalic, atraumatic. ENT: Nares patent. No nasal discharge, no septal abnormalities noted. Tympanic membranes are normal and external auditory canals are clear. Oropharynx with no redness, swelling, or masses, exudates, or evidence of obstruction, uvula midline. Mucous membranes moist. Neck: Trachea midline, no thyromegaly or masses palpated, and no cervical lymphadenopathy. Supple, full range of motion without nuchal rigidity, or vertebral point tenderness. No Meningismus. Chest/axilla: Normal chest wall appearance and motion. Nontender with no deformity. No lesions are appreciated. Cardiovascular: Regular rate and rhythm with a normal S1 and S2. Normal PMI, no JVD. No pulse deficits. Respiratory: Lungs have equal breath sounds bilaterally, clear to auscultation. No rales, rhonchi or wheezes noted. No increased work of breathing, no retractions or nasal flaring. Abdomen/GI: Soft, non-tender, non-distended Back: No spinal tenderness. No costovertebral tenderness. Full range of motion. Skin: Warm, dry with normal turgor. Normal color with no rashes, no lesions, and no evidence of cellulitis. MS/ Extremity: Pulses equal, no cyanosis. Neurovascular intact. Full, normal range of motion. Neuro: Awake and alert, GCS 15, oriented to person, place, time, and situation. Cranial nerves II-XII grossly intact. Motor strength 5/5 in all extremities. Sensory grossly intact. Cerebellar exam normal. Normal gait. Vital Signs: 07/11 23:41 BP 130 / 87; Pulse 120; Resp 19 S; Temp 99(O); Pulse Ox 99% on R/A; Weight 72.57 kg; ha1 Height 5 ft. 2 in. ; 07/12 00:16 Pulse 98; dr5 02:00 BP 128 / 85; Pulse 91; Resp 18 S; Pulse Ox 98% on R/A; 1 05:00 BP 118 / 81; Pulse 87; Resp 18 S; Pulse Ox 99% on R/A; ha1 07/11 23:41 Body Mass Index 29.26 (72.57 kg, 157.48 cm) [facility] MDM: 07/11 23:23 Medical Screening Exam initiated dr5 07/12 00:52 Differential diagnosis: viral Infection, bacterial infection, URI, Diverticulitis, dr5 pyelonephritis. Data reviewed: vital signs, nurses notes. Care significantly affected by the following Social Determinants of Health: Poor access to healthcare and/or lack of insurance, Poor access to transportation, Problems related to employment. Counseling: I had a detailed discussion with the patient and/or guardian regarding the historical points, exam findings, and any diagnostic results supporting the discharge/admit diagnosis, the presence of at least one elevated blood pressure reading (>120/80) during this emergency department visit. ED course: Patient's urinalysis was normal. White blood cell count came back elevated. Will get CT abdomen pelvis with contrast.. 01:46 Transition of care: After a detail discussion of the patient's case, care is dr5 transferred to Ray Amado MD. 04:41 ED course: CLINICAL HISTORY: Abdominal pain. COMPARISON: None. 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 FINDINGS: Lower lungs are clear. Abdomen: The liver is normal in appearance. There is no biliary dilatation. Gallbladder contains multiple gallstones. The pancreas and spleen are normal in appearance. Adrenal glands are normal. There is a punctate upper pole left renal calculus. There is no hydronephrosis. Abdominal aorta is normal in course and caliber without aneurysm. There is no free air. There is no retroperitoneal adenopathy. Pelvis: There is no bowel obstruction. Urinary bladder is unremarkable. There is no free fluid. Uterus is normal in size containing an IUD. Appendix is normal. Skeleton: There are no acute osseous findings. No suspicious bony lesions. IMPRESSION: Minimal left nephrolithiasis without hydronephrosis. Cholelithiasis. Electronically signed by: Miguel Angel Forrester MD. 05:03 Differential diagnosis: arthritis, strain, contusion, Herniated disc UTI. Consideration sp4 of Admission/Observation Escalation of care including admission/observation considered. ED course: Patient has no sign of acute intra-abdominal emergency. Pain appears to be musculoskeletal on the left side. Pain is worse with movement specifically worse with forward spine flexion. Patient will be advised to see Dr. Grier for persistent anemia associated with heavy menstrual periods. Otherwise stable for discharge home. 07/11 23:44 Order name: Urinalysis w/ reflexes; Complete Time: 00:24 kmf 07/11 23:44 Order name: Test, Urine; Complete Time: 00:24 kmf 07/11 23:47 Order name: CBC with Diff; Complete Time: 00:49 kmf 07/11 23:47 Order name: CMP; Complete Time: 00:55 kmf 07/12 00:49 Order name: CT Abd/Pelvis - IV Contrast Only; Complete Time: 17:00 dr5 Administered Medications: 07/11 23:57 Drug: NS 0.9% IV 1000 ml IV at 1000 ml once; to be given as a bolus over 60 minutes ha1 Route: IV; Rate: 1000 ml; Site: left antecubital; 07/12 05:22 Follow up: Response: No adverse reaction; IV Status: Completed infusion; IV Intake: ha1 1000ml 00:40 Drug: Ketorolac IVP 15 mg IVP once Route: IVP; Site: right antecubital; dr5 01:00 Follow up: Response: No adverse reaction; Marked relief of symptoms; Pain is decreased ha1 05:20 Drug: Ibuprofen PO 800 mg PO once Route: PO; ha1 05:30 Follow up: Response: No adverse reaction; Marked relief of symptoms ha1 05:20 Drug: Methocarbamol PO 1500 mg PO once Route: PO; ha1 05:30 Follow up: Response: No adverse reaction; Marked relief of symptoms ha1 Disposition: 02:48 Co-signature as Attending Physician, Ray Amado MD I agree with the assessment sp4 and plan of care. I reviewed the patient's care provided by Advanced Practice Provider \T\ agree w/ the diagnosis \T\ care plan. I personally saw the pt \T\ performed a substantive portion of the visit, incldng all aspects of the (History/Exam/Medical Decision Making). 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 sp4 Followup: sp4 - With: Mary Cox MD - When: 7 - 10 days - Reason: Recheck today's complaints Discharge Instructions: - Discharge Summary Sheet sp4 - Iron Deficiency Anemia, Adult, [id number] sp4 Forms: - Patient Portal Instructions sp4 Prescriptions: - naproxen 500 mg Oral tablet - take 1 tablet ORAL route every 12 hours PRN pain; 50 tablet; Refills: 0, sp4 Product Selection Permitted - methocarbamol 750 mg Oral tablet - take 2 tablets ORAL route every 8 hours for 2 days PRN muscle soreness; 60 sp4 tablet; Refills: 0, Product Selection Permitted Signatures: Dispatcher [employer] Anne Shultz RN RN ha1 Ray Amado MD MD sp4 Chris Khalil, GEE-C HEARING CARE PRACTITIONER-Cdr5
--- NOTE | 2024-07-12 05:06 | ER ---
Nurse's Notes [facility] Name: Lorena Fragoso Age: 34 yrs Sex: Female : 1990 Arrival Date: 07/11/2024 Time: 23:19 Bed 12 Private MD: Diagnosis: Low back pain;Acute left lower back pain, acute flank pain, acute musculature sprain, Menorrhagia and anemia ;Chronic microcytic anemia secondary to persistent blood loss Presentation: 07/11 23:41 Chief complaint: Patient states: URINARY INCONTINENCE , LEFT FLANK PAIN. ha1 23:41 Coronavirus screen: Client denies travel out of the [place] in the last 14 days. Ebola ha1 Screen: No symptoms or risks identified at this time. Initial Sepsis Screen: Does the patient meet any 2 criteria? No. Patient's initial sepsis screen is negative. Does the patient have a suspected source of infection? No. Patient's initial sepsis screen is negative. Risk Assessment: Do you want to hurt yourself or someone else? Patient reports no desire to harm self or others. Onset of symptoms was July 12, 2024. 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 - Infectious Disease History:: Denies. - Social history:: Smoking status: unknown. Screenin:41 [facility] ED Fall Risk Assessment (Adult) History of falling in the last 3 months, ha1 including since admission No falls in past 3 months (0 pts) Confusion or Disorientation No (0 pts) Intoxicated or Sedated No (0 pts) Impaired Gait No (0 pts) Mobility Assist Device Used No (0 pt) Altered Elimination No (0 pt) Score/Fall Risk Level 0 - 2 = Low Risk Oriented to surroundings, Maintained a safe environment, Educated pt \T\ family on fall prevention, incl call for assistance when getting out of bed, Hourly rounding (assess needs \T\ fall precautionary measures) done. Abuse screen: Denies threats or abuse. Denies injuries from another. Nutritional screening: No deficits noted. Tuberculosis screening: No symptoms or risk factors identified. Assessment: 23:41 General: Appears uncomfortable, Behavior is calm, cooperative. Pain: Complains of pain ha1 in back Pain does not radiate. Pain currently is 7 out of 10 on a pain scale. Quality of pain is described as aching, Pain began suddenly. Neuro: Level of Consciousness is awake, alert, obeys commands, Oriented to person, place, time, situation. Cardiovascular: Patient's skin is warm and dry. Respiratory: Airway is patent Respiratory effort is even, unlabored, Respiratory pattern is regular, symmetrical. GI: No signs and/or symptoms were reported involving the gastrointestinal system. Derm: Skin is pink, warm \T\ dry. Musculoskeletal: Circulation, motion, and sensation intact. Range of motion: intact in all extremities. 07/12 01:00 Reassessment: Patient and/or family updated on plan of care and expected duration. Pain ha1 level reassessed. Patient is alert, oriented x 3, equal unlabored respirations, skin warm/dry/pink. Patient states feeling better. Patient states symptoms have improved. 02:00 Reassessment: Patient and/or family updated on plan of care and expected duration. Pain ha1 level reassessed. Patient is alert, oriented x 3, equal unlabored respirations, skin warm/dry/pink. 03:00 Reassessment: Patient and/or family updated on plan of care and expected duration. Pain ha1 level reassessed. Patient is alert, oriented x 3, equal unlabored respirations, skin warm/dry/pink. 04:00 Reassessment: Patient and/or family updated on plan of care and expected duration. Pain ha1 level reassessed. Patient is alert, oriented x 3, equal unlabored respirations, skin warm/dry/pink. 05:23 Reassessment: Patient and/or family updated on plan of care and expected duration. Pain ha1 level reassessed. Patient is alert, oriented x 3, equal unlabored respirations, skin warm/dry/pink. Vital Signs: 07/11 23:41 BP 130 / 87; Pulse 120; Resp 19 S; Temp 99(O); Pulse Ox 99% on R/A; Weight 72.57 kg; ha1 Height 5 ft. 2 in. ; 07/12 00:16 Pulse 98; dr5 02:00 BP 128 / 85; Pulse 91; Resp 18 S; Pulse Ox 98% on R/A; ha1 05:00 BP 118 / 81; Pulse 87; Resp 18 S; Pulse Ox 99% on R/A; ha1 02 23:41 Body Mass Index 29.26 (72.57 kg, 157.48 cm) ha1 ED Course: 07/11 23:21 Patient arrived in ED. jj6 23:22 [facility] 23:22 Ray Amado MD is Attending Physician. dr5 23:41 Patient has correct armband on for positive identification. Bed in low position. Call ha1 light in reach. Side rails up X 1. Adult w/ patient. 23:41 Provided Education on: plan of care . Client placed on continuous cardiac and pulse ha1 oximetry monitoring. NIBP monitoring applied. 23:41 Arm band placed on right wrist. ha1 23:56 CMP Sent. kmf 23:56 CBC with Diff Sent. kmf 23:56 Test, Urine Sent. kmf 23:56 Urinalysis w/ reflexes Sent. kmf 23:56 Inserted saline lock: 22 gauge in right antecubital area, using aseptic technique. kmf Blood collected. Flushed with 10 mL NS. 07/12 00:04 Anne Marshall, RN is Primary Nurse. ha1 00:06 Triage completed. ha1 00:44 Initial lab(s) drawn, by ca, sent to lab. kmf 00:44 Urine collected: clean catch specimen, clear. kmf 01:16 CT Abd/Pelvis - IV Contrast Only In Process Unspecified. EDMS 05:04 Mary Cox MD is Referral Physician. sp4 05:30 No provider procedures requiring assistance completed. ha1 05:30 IV discontinued, intact, bleeding controlled, No redness/swelling at site. Pressure ha1 dressing applied. Administered Medications: 07/11 23:57 Drug: NS 0.9% IV 1000 ml IV at 1000 ml once; to be given as a bolus over 60 minutes ha1 Route: IV; Rate: 1000 ml; Site: left antecubital; 07/12 05:22 Follow up: Response: No adverse reaction; IV Status: Completed infusion; IV Intake: ha1 1000ml 00:40 Drug: Ketorolac IVP 15 mg IVP once Route: IVP; Site: right antecubital; dr5 01:00 Follow up: Response: No adverse reaction; Marked relief of symptoms; Pain is decreased ha1 05:20 Drug: Ibuprofen PO 800 mg PO once Route: PO; ha1 05:30 Follow up: Response: No adverse reaction; Marked relief of symptoms ha1 05:20 Drug: Methocarbamol PO 1500 mg PO once Route: PO; ha1 05:30 Follow up: Response: No adverse reaction; Marked relief of symptoms ha1 Medication: 04:13 VIS not applicable for this client. ha1 Intake: 05:22 IV: 1000ml; Total: 1000ml. ha1 Outcome: 05:05 Discharge ordered by . nito 05:30 Discharged to home ambulatory, with family, ha1 05:30 Condition: stable 05:30 Discharge instructions given to patient, family, Instructed on discharge instructions, follow up and referral plans. medication usage, Demonstrated understanding of instructions, follow-up care, medications, Prescriptions given X 2, 05:30 Patient left the ED. ha1 Signatures: Dispatcher [employer] EDMS Loni Murdock [id number] Anne Marshall RN RN ha1 Ray Amado MD MD sp4 Forrester, Kelsey Maroul kmf Rhodes, Dustin, CREDIT REVIEW OFFICER-C CREDIT REVIEW OFFICER-[facility]5 Corrections: (The following items were deleted from the chart) 06:08 06:08 Patient left the ED. ha1 ha1
[2024-07-12] MEDS ORDERED: methocarbamoL 500 MG TAB ONE (05:13)
[2024-07-12] MEDS ORDERED: IBUPROFEN 400 MG TAB ONE (05:14)
[2024-07-12 06:32] VITALS: TEMP 99
[2024-07-12 06:35] VITALS: BP 118/81; O2SAT 99
== END 2024-07-12 06:08 | disposition home or self-care (01) ==
LOC: ER 23:19
DX: S39.012A Strain of muscle, fascia and tendon of lower back, initial encounter (principal); N92.0 Excessive and frequent menstruation with regular cycle; D62 Acute posthemorrhagic anemia
CPT/HCPCS: 36415; 74177; 80053; 81003; 81025; 85025; 96361; 96374; 99284; J7030; Q9967

== ENCOUNTER 2025-03-28 16:05 | Emergency (ER) | payer SELFPAY ==
[2025-03-28 17:31] LABS: Influenza A Ag Negative; Influenza B Ag Negative; SARS-CoV-2 Antigen Rapid Res Negative (Negative)
--- NOTE | 2025-03-28 17:41 | RAD REPORT ---
EXAMINATION: ONE VIEW CHEST XR CLINICAL INDICATION: Female, 35 years old.,Cough;Congestion TECHNIQUE: Frontal chest projection is submitted. Examination is limited by patient positioning and t echnique. COMPARISON: No prior exam. FINDINGS: The lungs are well inflated and clear. No pneumothorax or sizable effusion. The heart is normal in s ize. Mediastinal contours are unremarkable. IMPRESSION: No acute intrathoracic abnormalities.
--- NOTE | 2025-03-28 17:48 | EDPHYS ---
Physician Documentation [facility] Name: Lorena Fragoso Age: 35 yrs Sex: Female : 1990 Arrival Date: 03/28/2025 Time: 16:05 Bed 5 Private MD: ED Physician Marito Crow HPI: 03/28 18:27 This 35 yrs old Female presents to ER via Ambulatory with complaints of Flu dr5 Symptoms, Sinus Congestion, Neck Pain, Chest Pain, Nausea/Vomiting. 18:27 Onset: The symptoms/episode began/occurred 2 day(s) ago. Patient is a 35-year-old dr5 female with no past medical history coming in with sinus congestion, cough, flulike symptoms that started on Saturday. Patient reports she been taking Sudafed which has not helped her symptoms. Patient reports chest pressure when she coughs a lot. No active chest pain, shortness of breath, abdominal pain, nausea, vomiting at this time.. 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 - Infectious Disease History:: Denies. - Social history:: Smoking status: Patient denies any tobacco usage or history of. ROS: 18:27 Constitutional: as per hpi dr5 Exam: 18:27 Constitutional: This is a well developed, well nourished patient who is awake, alert, dr5 and in no acute distress. Head/Face: Normocephalic, atraumatic. Eyes: Pupils equal round and reactive to light, extra-ocular motions intact. Lids and lashes normal. Conjunctiva and sclera are non-icteric and not injected. Cornea within normal limits. Periorbital areas with no swelling, redness, or edema. Neck: Trachea midline, no thyromegaly or masses palpated, and no cervical lymphadenopathy. Supple, full range of motion without nuchal rigidity, or vertebral point tenderness. No Meningismus. Chest/axilla: Normal chest wall appearance and motion. Nontender with no deformity. No lesions are appreciated. Cardiovascular: Regular rate and rhythm with a normal S1 and S2. Normal PMI, no JVD. No pulse deficits. Respiratory: Lungs have equal breath sounds bilaterally, clear to auscultation. No rales, rhonchi or wheezes noted. No increased work of breathing, no retractions or nasal flaring. Back: No spinal tenderness. No costovertebral tenderness. Full range of motion. Skin: Warm, dry with normal turgor. Normal color with no rashes, no lesions, and no evidence of cellulitis. MS/ Extremity: Pulses equal, no cyanosis. Neurovascular intact. Full, normal range of motion. Neuro: Awake and alert, GCS 15, oriented to person, place, time, and situation. Cranial nerves II-XII grossly intact. Motor strength 5/5 in all extremities. Sensory grossly intact. Cerebellar exam normal. Normal gait. Vital Signs: 16:26 BP 131 / 79; Pulse 105; Resp 18; Temp 98.4; Pulse Ox 100% ; Weight 72.57 kg; Height 5 me1 ft. 2 in. ; Pain 6/10; 16:26 Body Mass Index 29.26 (72.57 kg, 157.48 cm) me1 16:26 Pain Scale: Adult me1 MDM: 16:13 Medical Screening Exam initiated sb4 18:27 Differential diagnosis: viral Infection, bacterial infection, URI. Data reviewed: vital dr5 signs, nurses notes, lab test result(s), Flu: negative COVID negative, Strep negative. Consideration of Admission/Observation Escalation of care including admission/observation considered. Escalation considered patient found to have hypoxia and fever. I considered the following discharge prescriptions or medication management in the emergency department Pain Medications: At this time, prescription pain medications are not recommended, Offered patient pain medication but patient kindly declined. Independent interpretation of the following test(s) in the Emergency Department X-Ray: My interpretation is Independent interpretation of x-ray does not reveal infiltrates concerning for pneumonia. Care significantly affected by the following Social Determinants of Health: Poor access to healthcare and/or lack of insurance, Poor access to transportation, Problems related to employment. Counseling: I had a detailed discussion with the patient and/or guardian regarding the historical points, exam findings, and any diagnostic results supporting the discharge/admit diagnosis, the presence of at least one elevated blood pressure reading (>120/80) during this emergency department visit, lab results, radiology results, the need for outpatient follow up, for definitive care, a family practitioner, to return to the emergency department if symptoms worsen or persist or if there are any questions or concerns that arise at home. Special discussion: I discussed with the patient/guardian in detail that at this point there is no indication for admission to the hospital. It is understood, however, that if the symptoms persist or worsen the patient needs to return immediately for re-evaluation. Based on the history and exam findings, there is no indication for further emergent testing or inpatient evaluation. I discussed with the patient/guardian the need to see the primary care provider for further evaluation of the symptoms. ED course: Strep, COVID, flu negative as well as chest x-ray. Will give patient Augmentin for sinusitis and steroid Dosepak. Recommend increase hydration, alternate Tylenol and Motrin as needed for pain. All question answered. Strict ER precaution given. 03/28 16:17 Order name: COVID-19 Ag + Flu A+B Ag; Complete Time: 17:47 dr5 03/28 16:17 Order name: Group A Streptococcus Rapid; Complete Time: 17:47 dr5 03/28 17:30 Order name: Throat Culture [facility] 03/28 16:35 Order name: Chest Single View XRAY; Complete Time: 17:47 dr5 Administered Medications: No medications were administered Disposition Summary: 03/28/25 17:48 Discharge Ordered Notes: Location: Home dr5 Condition: Stable dr5 Diagnosis - Acute frontal sinusitis dr5 Followup: dr5 - With: Emergency Department - When: As needed - Reason: Worsening of condition Followup: dr5 - With: Private Physician - When: 1 - 2 days - Reason: Recheck today's complaints, Continuance of care, Re-evaluation by your physician Discharge Instructions: - Discharge Summary Sheet dr5 - Sinusitis, Adult dr5 Forms: - Medication Reconciliation Form dr5 - Antibiotic Education dr5 - Patient Portal Instructions dr5 - Leadership Thank You Letter dr5 Prescriptions: - Augmentin 875-125 mg Oral Tablet - take 1 tablet ORAL route every 12 hours for 10 days; 20 tablet; Refills: 0, dr5 Product Selection Permitted - Medrol (Phillip) 4 mg Oral Tablets, Dose Pack - take 1 tablet ORAL route as directed - follow package instructions; 1 packet; dr5 Refills: 0, Product Selection Permitted Signatures: Dispatcher [employer] EDFelecia Woodson PAKhalida PAKhalida sb4 Autumn Devlin RN RN me1 Chris Khalil, [employer] CRM DEVELOPER-C [employer] CRM DEVELOPER-Cdr5 Corrections: (The following items were deleted from the chart) 16:18 16:18 COVID-19 Ag + Flu A+B Ag+I.LAB.BRZ ordered. EDMS EDMS 16:18 Group A Streptococcus Rapid Sc+I.LAB.BRZ ordered. EDMS EDMS
--- NOTE | 2025-03-28 17:48 | ER ---
Nurse's Notes [facility] Name: Lorena Fragoso Age: 35 yrs Sex: Female : 1990 Arrival Date: 03/28/2025 Time: 16:05 Bed 5 Private MD: Diagnosis: Acute frontal sinusitis Presentation: 03/28 16:26 Chief complaint: Patient states: cough, sinus congestion, COWART, right sided neck pain, me1 chest pain with cough, dizziness started Saturday, n/v today. Coronavirus screen: Vaccine status: Patient reports being unvaccinated. Ebola Screen: No symptoms or risks identified at this time. Initial Sepsis Screen: Does the patient meet any 2 criteria? HR > 90 bpm. Does the patient have a suspected source of infection? No. Patient's initial sepsis screen is negative. Risk Assessment: Do you want to hurt yourself or someone else? Patient reports no desire to harm self or others. Onset of symptoms was March 24, 2025. 16:26 Method Of Arrival: [place] 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 - Infectious Disease History:: Denies. - Social history:: Smoking status: Patient denies any tobacco usage or history of. Screenin:51 [facility] ED Fall Risk Assessment (Adult) History of falling in the last 3 months, jb4 including since admission No falls in past 3 months (0 pts) Confusion or Disorientation No (0 pts) Intoxicated or Sedated No (0 pts) Impaired Gait No (0 pts) Mobility Assist Device Used No (0 pt) Altered Elimination No (0 pt) Score/Fall Risk Level 0 - 2 = Low Risk Oriented to surroundings, Maintained a safe environment. Abuse screen: Denies threats or abuse. Nutritional screening: No deficits noted. Tuberculosis screening: No symptoms or risk factors identified. Assessment: 16:51 General: Appears in no apparent distress. comfortable, Behavior is calm, cooperative, jb4 appropriate for age. Pain: Complains of pain in chest Pain does not radiate. Pain currently is 6 out of 10 on a pain scale. Neuro: Level of Consciousness is awake, alert, obeys commands, Oriented to person, place, time, situation. Cardiovascular: Patient's skin is warm and dry. Respiratory: Airway is patent Respiratory effort is even, unlabored, Respiratory pattern is regular, symmetrical. Derm: Skin is intact, Skin is pink, warm \T\ dry. Musculoskeletal: Circulation, motion, and sensation intact. Range of motion: intact in all extremities. 17:43 Reassessment: Patient appears in no apparent distress at this time. Patient and/or jb4 family updated on plan of care and expected duration. Pain level reassessed. Patient is alert, oriented x 3, equal unlabored respirations, skin warm/dry/pink. Vital Signs: 16:26 BP 131 / 79; Pulse 105; Resp 18; Temp 98.4; Pulse Ox 100% ; Weight 72.57 kg; Height 5 me1 ft. 2 in. ; Pain 6/10; 16:26 Body Mass Index 29.26 (72.57 kg, 157.48 cm) me1 16:26 Pain Scale: [place] [facility] [place] Course: 16:09 Patient arrived in ED. cj3 16:12 Felecia Caballero PA-C is PHCP. sb4 16:12 Marito Crow MD is Attending Physician. sb4 16:12 Chris Khalil FNP-C is PHCP. dr5 16:15 Chris Khalil FNP-C is PHCP. sb4 16:29 Triage completed. me1 16:29 Arm band placed on Patient placed in an exam room. me1 16:36 Lj Link, RN is Primary Nurse. jb4 16:51 Patient has correct armband on for positive identification. Bed in low position. Call jb4 light in reach. Side rails up X 1. Provided Education on: plan of care. Client placed on continuous cardiac and pulse oximetry monitoring. NIBP monitoring applied. 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 16:51 COVID-19 Ag + Flu A+B Ag Sent. jb4 16:51 Group A Streptococcus Rapid Sent. jb4 16:51 No provider procedures requiring assistance completed. Patient maintains SpO2 jb4 saturation greater than 95% on room air. 17:32 Chest Single View XRAY In Process Unspecified. EDMS 18:05 Patient did not have IV access during this emergency room visit. jb4 Administered Medications: No medications were administered Medication: 16:51 VIS not applicable for this client. jb4 Outcome: 17:48 Discharge ordered by . dr5 18:05 Discharged to home ambulatory, jb4 18:05 Condition: stable 18:05 Discharge instructions given to patient, Instructed on discharge instructions, follow up and referral plans. no drinking with medication, medication usage, Demonstrated understanding of instructions, follow-up care, medications, Prescriptions given X 2, 18:06 Patient left the ED. jb4 Signatures: Dispatcher [employer] EDLj Aleman, RN RN jb4 Felecia Caballero, PA-C PA-C sb4 Autumn Devlin RN RN me1 Chris Khalil, DIRECTOR OF CLINICAL APPLICATIONS-C DIRECTOR OF CLINICAL APPLICATIONS-Cdr5 Jennifer Foreman cj3
[2025-03-28 22:07] VITALS: BP 131/79; TEMP 98.4; O2SAT 100
== END 2025-03-28 18:06 | disposition home or self-care (01) ==
LOC: ER 16:05
DX: J01.10 Acute frontal sinusitis, unspecified (principal); Z11.52 Encounter for screening for COVID-19
CPT/HCPCS: 36415; 71045; 87070; 87428; 99284